=== PATIENT | female | born 1995 | race African-American/Black ===

== ENCOUNTER 2019-10-28 09:47 | Emergency (ER) | payer MEDICAID ==
[~2019-10-28] VITALS: Ht 165.1 cm; Wt 60.0 kg
[2019-10-28 10:00] VITALS: BP 154/70
[2019-10-28 10:53] LABS: BASOPHILS % 0.6 % (0.0-2.0); EOSINOPHILS % 0.3 % (0.0-5.0); HEMATOCRIT. 33.4 % (36.0-48.0); HEMOGLOBIN. 10.8 g/dL (12.0-16.0); MEAN CORPUSCULAR HEMOGLOBIN 23.4 pg (28.0-32.0); MEAN CORPUSCULAR VOLUME 72.4 fL (81.0-99.0); MEAN PLATELET VOLUME 7.1 fl (7.4-10.4); MONOCYTES % 7.6 % (2.0-8.0); NEUTROPHILS % 68.5 % (40.0-76.0); PLATELET 314 x1000/uL (130-400); RED BLOOD CELL COUNT 4.62 mill/uL (4.2-5.4)
[2019-10-28 10:58] LABS: CHLORIDE 106 mEq/L (98-107)
[2019-10-28 11:03] LABS: ETHANOL BLOOD < 10 mg/dL
[2019-10-28 11:12] LABS: HCG SCREEN NEGATIVE
== END 2019-10-28 11:45 | disposition left against medical advice (07) ==
LOC: ER 09:59
DX: R46.2 Strange and inexplicable behavior (principal); R03.0 Elevated blood-pressure reading, without diagnosis of hypertension; D64.9 Anemia, unspecified
CPT/HCPCS: 36415; 80053; 80307; 80320; 80329; 84703; 85025; 99283; G0480